=== PATIENT | female | born 1950 | race Caucasian/White ===

== ENCOUNTER → 2018-12-28 | Outpatient (CLI) | payer BC ==
[2018-12-28 18:46] LABS: BLOOD UREA NITROGEN 19 MG/DL (7-18); CALCIUM LEVEL 9.5 MG/DL (8.8-10.2); CARBON DIOXIDE LEVEL 31 MEQ/L (21-32); CHLORIDE LEVEL 103 MEQ/L (98-107); CREATININE FOR GFR 0.62 MG/DL (0.55-1.30); FREE T3 3.3 PG/ML (2.2-4.0); FREE T4 0.99 NG/DL (0.76-1.46); GLOMERULAR FILTRATION RATE > 60.0 (>45); GLUCOSE, FASTING 97 MG/DL (70-100); POTASSIUM SERUM 4.7 MEQ/L (3.5-5.1); SODIUM LEVEL 138 MEQ/L (136-145); TROPONIN I < 0.02 NG/ML (< 0.10)
== END ==
LOC: M WUC 15:16
PROVIDERS: ATTEND Nurse Practitioner Family
DX: R07.9 Chest pain, unspecified (principal); R00.2 Palpitations

== ENCOUNTER → 2019-09-16 | Outpatient (REF) | payer MEDICARE ==
[2019-09-16 14:44] LABS: BASO # 0.1 10^3/uL (0.0-0.2); BASO % 0.7 % (0.0-1.0); EOS # 0.3 10^3/uL (0.0-0.5); EOS % 3.6 % (0.0-3.0); HEMATOCRIT 44.8 % (36.0-47.0); HEMOGLOBIN 14.2 g/dl (12.0-15.5); LYMPH # 2.3 10^3/uL (1.5-5.0); LYMPH % 31.2 % (24.0-44.0); MEAN CORPUSCULAR HEMOGLOBIN 29.2 pg (27.0-33.0); MEAN CORPUSCULAR HGB CONC 31.7 g/dl (32.0-36.5); MEAN CORPUSCULAR VOLUME 92.2 fl (80.0-96.0); MONO # 0.7 10^3/uL (0.0-0.8); NEUTROPHILS # 3.9 10^3/uL (1.5-8.5); NEUTROPHILS % 54.4 % (36.0-66.0); PLATELET COUNT, AUTOMATED 284 10^3/uL (150-450); RED BLOOD COUNT 4.86 10^6/uL (4.00-5.40); WHITE BLOOD COUNT 7.2 10^3/uL (4.0-10.0)
[2019-09-16 15:12] LABS: ALT/SGPT 22 U/L (12-78); BILIRUBIN,TOTAL 0.4 MG/DL (0.2-1.0); BLOOD UREA NITROGEN 18 MG/DL (7-18); CARBON DIOXIDE LEVEL 29 MEQ/L (21-32); CHLORIDE LEVEL 106 MEQ/L (98-107); CHOLESTEROL LEVEL 205 MG/DL (<200); CREATININE FOR GFR 0.62 MG/DL (0.55-1.30); FREE T4 0.98 NG/DL (0.76-1.46); GLOMERULAR FILTRATION RATE > 60.0 (>45); GLUCOSE, FASTING 79 MG/DL (70-100); HDL CHOLESTEROL 50 MG/DL (>40); LDL CHOLESTEROL 114 MG/DL (<100); NON-HDL-C 155 MG/DL; POTASSIUM SERUM 4.6 MEQ/L (3.5-5.1); SODIUM LEVEL 140 MEQ/L (136-145); TOTAL PROTEIN 6.6 GM/DL (6.4-8.2); TRIGLYCERIDES LEVEL 206 MG/DL (<150)
== END ==
LOC: M SFHCSACK 09:46
PROVIDERS: ATTEND Physician Assistant
DX: I10 Essential (primary) hypertension (principal); Z13.220 Encounter for screening for lipoid disorders; E05.90 Thyrotoxicosis, unspecified without thyrotoxic crisis or storm; Z13.21 Encounter for screening for nutritional disorder

== ENCOUNTER → 2020-12-13 | Outpatient (CLI) | payer MEDICARE ==
--- NOTE | 2020-12-13 13:39 | REPVR ---
PROCEDURE INFORMATION: Exam: CT Maxillofacial Without Contrast, Sinus Exam date and time: 12/13/2020 1:13 PM Age: 70 years old Clinical indication: Maxilla pain; Additional info: Pain of max sinus TECHNIQUE: Imaging protocol: CT Maxillofacial without contrast. Focus on the sinuses. Radiation optimization: All CT scans at this facility use at least one of these dose optimization techniques: automated exposure control; mA and/or kV adjustment per patient size (includes targeted exams where dose is matched to clinical indication); or iterative reconstruction. COMPARISON: No relevant prior studies available. FINDINGS: Sinuses: No sinus fluid or significant mucoperiosteal disease. Nasal cavity/Septum: Rightward deviation of the nasal septum with asymmetric hypertrophy of the left nasal turbinates. Orbital cavity: Unremarkable appearance of the globes, optic nerves, and extraocular muscles. Bones/joints: Temporomandibular joint degenerative change. No acute bony injury in the visualized facial bones. Soft tissues: Metallic earrings producing beam hardening artifact. No significant facial soft tissue swelling. Dental: Beam hardening artifact is identified in association with dental amalgam. IMPRESSION: 1. Temporomandibular joint degenerative change. 2. No acute sinusitis. Electronically signed by: Ronaldo Alejo On 12/13/2020 13:40:00 PM
== END ==
LOC: M RAD 13:09
PROVIDERS: ATTEND Physician Assistant Medical
DX: J34.89 Other specified disorders of nose and nasal sinuses (principal)

== ENCOUNTER 2022-01-08 18:54 | Emergency (ER) | payer MEDICARE ==
[~2022-01-08] VITALS: Ht 154.9 cm; Wt 54.5 kg
[2022-01-08] MEDS ORDERED: HYDR1CAP25 PO (19:25)
[2022-01-08] MEDS ORDERED: TOPI25TA10 PO (19:25)
[2022-01-08] MEDS ORDERED: PARO5TAB PO (19:25)
[2022-01-08 20:30] LABS: RSV AMPLIFICATION NEGATIVE (NEGATIVE)
[2022-01-08] MEDS ORDERED: ONDANSETRON 4MG ORAL DISINTEGRATING TAB PO ONE (22:10)
[2022-01-08] MEDS ORDERED: ACETAMINOPHEN 325 MG TAB PO ONE (22:15)
[2022-01-08] MEDS ORDERED: ONDANSETRON 4MG/2ML VIAL IV ONE (22:15)
[2022-01-08 22:52] LABS: BASO % 0.3 % (0.0-1.0); HEMATOCRIT 42.3 % (36.0-47.0); HEMOGLOBIN 14.1 g/dl (12.0-15.5); LYMPH # 0.4 10^3/uL (1.5-5.0); MEAN CORPUSCULAR HEMOGLOBIN 29.4 pg (27.0-33.0); MEAN CORPUSCULAR HGB CONC 33.3 g/dl (32.0-36.5); MEAN CORPUSCULAR VOLUME 88.3 fl (80.0-96.0); MONO # 0.4 10^3/uL (0.0-0.8); MONO % 3.8 % (2.0-8.0); NEUTROPHILS # 10.7 10^3/uL (1.5-8.5); NEUTROPHILS % 92.5 % (36.0-66.0); PLATELET COUNT, AUTOMATED 301 10^3/uL (150-450); RED BLOOD COUNT 4.79 10^6/uL (4.00-5.40); WHITE BLOOD COUNT 11.6 10^3/uL (4.0-10.0)
[2022-01-08 23:02] LABS: INR 0.95; PROTHROMBIN TIME 13.1 SECONDS (12.7-14.5)
[2022-01-08 23:03] LABS: PARTIAL THROMBOPLASTIN TIME 38.2 SECONDS (25.9-37.0)
[2022-01-08 23:06] LABS: D-DIMER QUANT 555.9 ng/ml (<500)
[2022-01-09] LABS: ALBUMIN 4.3 GM/DL (3.2-5.2); ALT/SGPT 18 U/L (12-78); BILIRUBIN,TOTAL 0.5 MG/DL (0.2-1.0); BLOOD UREA NITROGEN 20 MG/DL (7-18); CALCIUM LEVEL 9.4 MG/DL (8.8-10.2); CARBON DIOXIDE LEVEL 21 MEQ/L (21-32); CHLORIDE LEVEL 110 MEQ/L (98-107); CREATININE FOR GFR 0.52 MG/DL (0.55-1.30); GLOMERULAR FILTRATION RATE > 60.0 (>45); GLUCOSE, FASTING 122 MG/DL (70-100); LDH LACTATE DEHYDROGENASE 256 U/L (84-246); MAGNESIUM LEVEL 2.1 MG/DL (1.8-2.4); POTASSIUM SERUM 4.2 MEQ/L (3.5-5.1); SODIUM LEVEL 139 MEQ/L (136-145); TOTAL PROTEIN 7.3 GM/DL (6.4-8.2)
[2022-01-09 00:01] LABS: C REACTIVE PROTEIN QUANTITATIV 2.23 MG/DL (0.00-0.30); FERRITIN 146 NG/ML (8-252)
[2022-01-09] MEDS ORDERED: ISOVUE-370 76% 100ML VIAL As Ordered ONE (00:23)
[2022-01-09] MEDS ORDERED: NIRM1TAB PO (01:09)
[2022-01-09 01:23] VITALS: BP 127/58
== END 2022-01-09 01:51 | disposition home or self-care (01) ==
LOC: M ED 18:54
DX: U07.1 COVID-19 (principal); I25.10 Atherosclerotic heart disease of native coronary artery without angina pectoris; J43.9 Emphysema, unspecified; R06.02 Shortness of breath; R50.9 Fever, unspecified; R51.9 Headache, unspecified; F41.9 Anxiety disorder, unspecified; Z88.8 Allergy status to other drugs, medicaments and biological substances; Z79.899 Other long term (current) drug therapy
CPT/HCPCS: 71046; 71275; 80053; 82728; 83605; 83615; 83735; 84145; 84484; 85025; 85379; 85384; 85610; 85730; 86140; 87631; 93005; 96374; 99284; J2405; Q9967

== ENCOUNTER 2022-05-14 16:41 | Emergency (ER) | payer MEDICARE ==
[~2022-05-14] VITALS: Ht 154.9 cm; Wt 55.8 kg
[~2022-05-14 16:41] MED LIST: HYDR1CAP25 PO; NIRM1TAB PO; PARO5TAB PO; TOPI25TA10 PO
[2022-05-14] MEDS ORDERED: ATOR40TA75 (16:47)
[2022-05-14 17:23] LABS: BASO # 0.1 10^3/uL (0.0-0.2); BASO % 0.7 % (0.0-1.0); EOS # 0.2 10^3/uL (0.0-0.5); EOS % 2.4 % (0.0-3.0); HEMATOCRIT 42.1 % (36.0-47.0); HEMOGLOBIN 13.8 g/dl (12.0-15.5); LYMPH # 2.4 10^3/uL (1.5-5.0); LYMPH % 24.5 % (24.0-44.0); MEAN CORPUSCULAR HEMOGLOBIN 29.4 pg (27.0-33.0); MEAN CORPUSCULAR HGB CONC 32.8 g/dl (32.0-36.5); MEAN CORPUSCULAR VOLUME 89.8 fl (80.0-96.0); MONO # 0.6 10^3/uL (0.0-0.8); MONO % 6.5 % (2.0-8.0); NEUTROPHILS # 6.4 10^3/uL (1.5-8.5); NEUTROPHILS % 65.7 % (36.0-66.0); PLATELET COUNT, AUTOMATED 274 10^3/uL (150-450); RED BLOOD COUNT 4.69 10^6/uL (4.00-5.40); WHITE BLOOD COUNT 9.8 10^3/uL (4.0-10.0)
[2022-05-14 17:50] LABS: BLOOD UREA NITROGEN 19 MG/DL (7-18); CALCIUM LEVEL 9.3 MG/DL (8.8-10.2); CARBON DIOXIDE LEVEL 22 MEQ/L (21-32); CHLORIDE LEVEL 107 MEQ/L (98-107); CREATININE FOR GFR 0.63 MG/DL (0.55-1.30); GLOMERULAR FILTRATION RATE > 60.0 (>45); GLUCOSE, FASTING 91 MG/DL (70-100); SODIUM LEVEL 138 MEQ/L (136-145)
[2022-05-14 18:16] LABS: MB/CK RELATIVE INDEX 2.75 (< OR =4)
[2022-05-14] MEDS ORDERED: ASPIRIN 81 MG CHEW TABLET PO ONE (18:20)
[2022-05-14] MEDS ORDERED: NITROGLYCERIN 0.4 MG SUBL TABLET SL PRN (18:20)
[2022-05-14 18:27] LABS: ALBUMIN 3.7 GM/DL (3.2-5.2); ALT/SGPT 27 U/L (12-78); BILIRUBIN,DIRECT < 0.1 MG/DL (0.0-0.2); BILIRUBIN,TOTAL 0.3 MG/DL (0.2-1.0); LIPASE 128 U/L (73-393); TOTAL PROTEIN 6.6 GM/DL (6.4-8.2)
[2022-05-14 18:34] VITALS: BP 137/63
[2022-05-14 19:01] LABS: INR 1.05; PROTHROMBIN TIME 14.1 SECONDS (12.7-14.5)
[2022-05-14 19:02] LABS: PARTIAL THROMBOPLASTIN TIME 35.1 SECONDS (25.9-37.0)
[2022-05-14] MEDS ORDERED: ISOVUE-370 76% 100ML VIAL As Ordered ONE (19:09)
[2022-05-14 19:18] LABS: CK-MB VALUE MASS 2.8 NG/ML (<3.6); MB/CK RELATIVE INDEX 2.62 (< OR =4)
[2022-05-14 19:37] LABS: RSV AMPLIFICATION NEGATIVE (NEGATIVE)
[2022-05-14] MEDS ORDERED: HEPARIN SOD (PORCINE) 5000UNITS/ML 1ML VIAL/SYRINGE IV ONE (19:50)
[2022-05-14] MEDS ORDERED: HEPARIN DRIP 25,000 UNITS in IV 1 EA IV SCH (19:50)
[2022-05-14 21:14] VITALS: BP 145/80
== END 2022-05-14 21:15 | disposition short-term general hospital (02) ==
LOC: M ED 16:41
DX: I21.4 Non-ST elevation (NSTEMI) myocardial infarction (principal); I24.9 Acute ischemic heart disease, unspecified; E78.5 Hyperlipidemia, unspecified; R51.9 Headache, unspecified; Z88.1 Allergy status to other antibiotic agents; Z88.5 Allergy status to narcotic agent; Z79.02 Long term (current) use of antithrombotics/antiplatelets; Z79.84 Long term (current) use of oral hypoglycemic drugs; Z79.899 Other long term (current) drug therapy
CPT/HCPCS: 71045; 71275; 80048; 80076; 82550; 82553; 83690; 84484; 85025; 85610; 85730; 87631; 93005; 93041; 94760; 96374; 99285; J1644; Q9967

== ENCOUNTER → 2022-09-22 | Outpatient (CLI) | payer MEDICARE ==
[~2022-09-22] MED LIST changes: +ATOR40TA75
== END ==
LOC: M CARPUL 13:02
PROVIDERS: ATTEND Physician Assistant Medical
DX: R06.09 Other forms of dyspnea (principal); R06.02 Shortness of breath; R07.89 Other chest pain; J43.1 Panlobular emphysema

== ENCOUNTER → 2023-01-26 | Outpatient (REF) | payer MEDICARE ==
[2023-01-26 16:44] LABS: BASO # 0.1 10^3/uL (0.0-0.2); BASO % 0.5 % (0.0-1.0); EOS # 0.1 10^3/uL (0.0-0.5); EOS % 1.2 % (0.0-3.0); HEMATOCRIT 43.3 % (36.0-47.0); HEMOGLOBIN 13.7 g/dl (12.0-15.5); LYMPH # 1.3 10^3/uL (1.5-5.0); LYMPH % 13.5 % (24.0-44.0); MEAN CORPUSCULAR HEMOGLOBIN 29.3 pg (27.0-33.0); MEAN CORPUSCULAR HGB CONC 31.6 g/dl (32.0-36.5); MEAN CORPUSCULAR VOLUME 92.5 fl (80.0-96.0); MONO # 0.7 10^3/uL (0.0-0.8); MONO % 6.9 % (2.0-8.0); NEUTROPHILS # 7.5 10^3/uL (1.5-8.5); NEUTROPHILS % 76.7 % (36.0-66.0); PLATELET COUNT, AUTOMATED 314 10^3/uL (150-450); RED BLOOD COUNT 4.68 10^6/uL (4.00-5.40); WHITE BLOOD COUNT 9.8 10^3/uL (4.0-10.0)
[2023-01-26 17:12] LABS: ALBUMIN 4.2 G/DL (3.2-5.2); ALKALINE PHOSPHATASE 88 U/L (46-116); ALT/SGPT 30 U/L (7.0-40); AST/SGOT 20 U/L (<34); BILIRUBIN,TOTAL 0.4 MG/DL (0.3-1.2); BLOOD UREA NITROGEN 20 MG/DL (9-23); CALCIUM LEVEL 9.6 MG/DL (8.3-10.6); CARBON DIOXIDE LEVEL 26 MMOL/L (20-31); CHLORIDE LEVEL 105 MMOL/L (98-107); CHOLESTEROL LEVEL 121 MG/DL (<200); CHOLESTEROL RISK RATIO 2.05 (<5); CREATININE FOR GFR 0.66 MG/DL (0.55-1.30); GLOMERULAR FILTRATION RATE > 60.0 (>39); GLUCOSE, FASTING 89 MG/DL (74-106); HDL CHOLESTEROL 58.8 MG/DL (>40); NON-HDL-C 62.2 MG/DL; POTASSIUM SERUM 4.3 MMOL/L (3.5-5.1); SODIUM LEVEL 141 MMOL/L (136-145); THYROID STIMULATING HORMONE 0.849 uIU/ML (0.55-4.78); TOTAL PROTEIN 6.3 G/DL (5.7-8.2); TRIGLYCERIDES LEVEL 121 MG/DL (<150)
== END ==
LOC: M SFHCADAM 14:27
PROVIDERS: ATTEND Physician Assistant Medical
DX: I25.118 Atherosclerotic heart disease of native coronary artery with other forms of angina pectoris (principal); E78.2 Mixed hyperlipidemia; J43.1 Panlobular emphysema

== ENCOUNTER → 2023-01-28 | Outpatient (CLI) | payer MEDICARE ==
[2023-01-28 18:09] LABS: FREE T4 1.07 NG/DL (0.89-1.76)
[2023-01-28 18:10] LABS: FERRITIN 64.1 NG/ML (7.3-270.7); TOTAL 25(OH) VITAMIN D 52.6 NG/ML (20.0-100.0)
== END ==
LOC: M PLALAB 16:26
PROVIDERS: ATTEND Physician Assistant
DX: R00.0 Tachycardia, unspecified (principal); F41.9 Anxiety disorder, unspecified; R53.83 Other fatigue; R00.2 Palpitations; Z79.899 Other long term (current) drug therapy

== ENCOUNTER → 2024-07-05 | Outpatient (CLI) | payer MEDICARE ==
[2024-07-05 19:32] LABS: HEMATOCRIT 44.2 % (36.0-47.0); HEMOGLOBIN 13.9 g/dl (12.0-15.5); MEAN CORPUSCULAR HEMOGLOBIN 29.5 pg (27.0-33.0); MEAN CORPUSCULAR HGB CONC 31.4 g/dl (32.0-36.5); MEAN CORPUSCULAR VOLUME 93.8 fl (80.0-96.0); PLATELET COUNT, AUTOMATED 320 10^3/uL (150-450); RED BLOOD COUNT 4.71 10^6/uL (4.00-5.40); WHITE BLOOD COUNT 9.6 10^3/uL (4.0-10.0)
[2024-07-05 19:58] LABS: ALBUMIN 3.7 G/DL (3.2-5.2); ALKALINE PHOSPHATASE 100 U/L (46-116); ALT/SGPT 25 U/L (7.0-40); AST/SGOT 18 U/L (<34); BILIRUBIN,TOTAL 0.4 MG/DL (0.3-1.2); BLOOD UREA NITROGEN 18 MG/DL (9-23); CALCIUM LEVEL 9.7 MG/DL (8.3-10.6); CARBON DIOXIDE LEVEL 28 MMOL/L (20-31); CHLORIDE LEVEL 110 MMOL/L (98-107); CHOLESTEROL LEVEL 138 MG/DL (<200); CHOLESTEROL RISK RATIO 2.64 (<5); CREATININE FOR GFR 0.67 MG/DL (0.55-1.30); GLOMERULAR FILTRATION RATE > 60.0 (>39); GLUCOSE, FASTING 84 MG/DL (74-106); HDL CHOLESTEROL 52.1 MG/DL (>40); LDL CHOLESTEROL 56.7 MG/DL (<100); NON-HDL-C 85.9 MG/DL; POTASSIUM SERUM 4.7 MMOL/L (3.5-5.1); SODIUM LEVEL 142 MMOL/L (136-145); TOTAL PROTEIN 6.5 G/DL (5.7-8.2); TRIGLYCERIDES LEVEL 146 MG/DL (<150)
[2024-07-05 20:04] LABS: THYROID STIMULATING HORMONE 2.846 uIU/ML (0.55-4.78)
[2024-07-05 20:29] LABS: BASOPHILS 4 % (0-1); EOSINOPHILS 3 % (0-3); LYMPHOCYTES 36 % (16-44); MONOCYTES 5 % (0-5); NEUTROPHILS 52 % (28-66); PLATELET ESTIMATE NORMAL (NORMAL)
== END ==
LOC: M WUC 10:15
PROVIDERS: ATTEND Physician Assistant Medical
DX: I25.10 Atherosclerotic heart disease of native coronary artery without angina pectoris (principal); E78.2 Mixed hyperlipidemia; F33.1 Major depressive disorder, recurrent, moderate

== ENCOUNTER → 2024-09-15 | Outpatient (CLI) | payer MEDICARE | LOC: M ADAMS 11:09 | PROVIDERS: ATTEND Physician Assistant Medical | DX: M47.812 Spondylosis without myelopathy or radiculopathy, cervical region (principal); M54.2 Cervicalgia ==

== ENCOUNTER → 2025-08-01 | Outpatient (CLI) | payer MEDICARE ==
[~2025-08-01] MED LIST changes: +TOPI-256 PO; -TOPI25TA10 PO
[2025-08-01 18:28] LABS: BASO # 0.1 10^3/uL (0.0-0.2); BASO % 0.7 % (0.0-1.0); EOS # 0.4 10^3/uL (0.0-0.5); EOS % 3.9 % (0.0-3.0); LYMPH # 1.9 10^3/uL (1.5-5.0); LYMPH % 17.4 % (24.0-44.0); MONO # 0.9 10^3/uL (0.0-0.8); MONO % 8.1 % (2.0-8.0); NEUTROPHILS # 7.6 10^3/uL (1.5-8.5); NEUTROPHILS % 69.7 % (36.0-66.0); PLATELET COUNT, AUTOMATED 335 10^3/uL (150-450)
[2025-08-01 18:59] LABS: ALT/SGPT 24 U/L (7.0-40); AST/SGOT 21 U/L (<34); CALCIUM LEVEL 9.0 MG/DL (8.3-10.6); CARBON DIOXIDE LEVEL 24 MMOL/L (20-31); CHLORIDE LEVEL 107 MMOL/L (98-107); CHOLESTEROL LEVEL 146 MG/DL (<200); CHOLESTEROL RISK RATIO 3.28 (<5); CREATININE FOR GFR 0.68 MG/DL (0.55-1.30); GLOMERULAR FILTRATION RATE > 90.0 (>39); LDL CHOLESTEROL 43.2 MG/DL (<100); NON-HDL-C 101.6 MG/DL; POTASSIUM SERUM 4.2 MMOL/L (3.5-5.1); SODIUM LEVEL 143 MMOL/L (136-145); TRIGLYCERIDES LEVEL 292 MG/DL (<150)
[2025-08-01 19:04] LABS: TOTAL 25(OH) VITAMIN D 57.8 NG/ML (20.0-100.0)
[2025-08-01 19:05] LABS: FREE T4 1.06 NG/DL (0.89-1.76)
== END ==
LOC: M WUC 14:17
PROVIDERS: ATTEND Physician Assistant Medical
DX: I25.10 Atherosclerotic heart disease of native coronary artery without angina pectoris (principal); F41.1 Generalized anxiety disorder; E78.2 Mixed hyperlipidemia; Z79.899 Other long term (current) drug therapy